=== PATIENT | female | born 1940 | race Caucasian/White ===

== ENCOUNTER → 2018-10-31 10:36 | Outpatient (CLI) | payer MEDICARE, SELFPAY ==
--- NOTE | 2018-10-31 10:52 | DI.CT.S_ITS ---
PROCEDURE: CT LUMBAR SPINE WO CON INDICATIONS: LUMBAR SPINE PAIN TECHNIQUE: Noncontrast 3 mm thick sections acquired from the T12 level to the sacrum. Sagittal and coronal reformats were constructed. For radiation dose reduction, the following was used: automated exposure control. COMPARISON: [facility] [place], [place], XR LUMBAR SPINE 2 OR 3 VIEWS, 10/16/2018, 14:33. FINDINGS: Image quality: Excellent. Bones: Postsurgical changes compatible with L2-L4 posterior and interbody fusion. Postsurgical changes compatible with L3 laminectomy. Orthopedic hardware is intact. No lucency is identified at the bone hardware interface. There is mild L3-L4 anterolisthesis. No acute vertebral body compression fractures. No suspicious lytic or blastic bony lesions. No pars defects. T12-L1: Loss of disc height. Vacuum disc phenomenon. Mild, diffuse disc bulge. No central stenosis. No neural foraminal narrowing. No neural impingement. L1-L2: Loss of disc height. Vacuum disc phenomenon. Endplate osteophytosis. Mild bilateral facet hypertrophy. Moderate narrowing of the central canal. Moderate bilateral neural foraminal narrowing. No definite neural impingement L2-L3: Status post fusion. Mild bilateral facet hypertrophy. No central stenosis. Mild left neural foraminal narrowing. No definite neural impingement. L3-L4: Status post fusion. Mild bilateral facet hypertrophy. No central stenosis. Mild right neural foraminal narrowing. No definite neural impingement. L4-L5: Loss of disc height. Vacuum disc phenomenon. Minimal, diffuse disc bulge. Mild facet and mild ligamentum flavum hypertrophy. Mild narrowing of the central canal. Mild right and moderate left neural foraminal narrowing. No definite neural impingement. L5-S1: Loss of disc height. Vacuum disc phenomenon. Mild, diffuse disc bulge. Moderate facet hypertrophy. Epidural lipomatosis. Severe narrowing of the central canal. Severe bilateral neural foraminal narrowing with compression of the exiting L5 nerve roots. Soft tissues: No retroperitoneal masses or hematomas. Visualized aorta is normal in caliber. IMPRESSION: 1. Postsurgical changes. 2. Multilevel degenerative disc disease. 3. Multilevel facet arthropathy. 4. Severe L5-S1 central canal narrowing. Moderate L1-L2 Central canal narrowing. Mild L4-L5 central canal narrowing. 5. Severe bilateral L5-S1 neural foraminal narrowing. Moderate bilateral L1-L2 neural foraminal narrowing. Mild right and moderate left L4-L5 neural foraminal narrowing. Mild left L2-L3 neural foraminal narrowing. Mild right L3-L4 neural foraminal narrowing. 6. Compression of the nerve roots of the cauda equina level the L5-S1 disc secondary to central canal narrowing. Please correlate with clinical data. 7. Compression of the exiting bilateral L5 nerve roots secondary to bilateral L5-S1 neural foraminal narrowing. Please correlate with clinical data. Dictated by: Ashley Crow MD, PhD on 10/31/2018 at 14:37 Approved by: Ashley Crow MD, PhD on 10/31/2018 at 14:52
== END ==
PROVIDERS: PCP Internal Medicine; Visit Provider Orthopaedic Surgery Orthopaedic Surgery of the Spine
DX: M54.5 Low back pain (principal); M51.36 Other intervertebral disc degeneration, lumbar region; M51.37 Other intervertebral disc degeneration, lumbosacral region; M47.816 Spondylosis without myelopathy or radiculopathy, lumbar region; M47.817 Spondylosis without myelopathy or radiculopathy, lumbosacral region; M48.061 Spinal stenosis, lumbar region without neurogenic claudication; M48.07 Spinal stenosis, lumbosacral region; Z98.1 Arthrodesis status
CPT/HCPCS: 72131